=== PATIENT | male | born 1985 | race Two or more races ===

== ENCOUNTER 2017-05-22 12:55 | Emergency (ER) | payer SELFPAY ==
--- NOTE | 2017-05-22 14:00 | ER Document Report ---
HPI - HPI Pain Level: 4 Notes: Patient is a 31-year-old male with no significant past medical history presents the ED complaining of bites to his hands and the back of his head at 3:00 this morning when he was sleeping. Patient states that he has had intense itching since then without any purulent discharge or abscess. Patient states that he had this once before and it was bedbugs. He denies any drug allergies or IV drug use. Denies any headache, fever, neck pain, URI, sore throat, chest pain, palpitations, syncope, cough, shortness of breath, wheeze, dyspnea, abdominal pain, nausea/vomiting/diarrhea, urinary retention, dysuria, hematuria, numbness/ tingling, muscle paralysis/weakness. - ROS Notes: REVIEW OF SYSTEMS: CONSTITUTIONAL : Denies fever, chills, or sweats. Denies recent illness. EENT: Denies eye, ear, throat, or mouth pain or symptoms. Denies nasal or sinus congestion or discharge. Denies throat, tongue, or mouth swelling or difficulty swallowing. CARDIOVASCULAR: Denies chest pain. Denies palpitations or racing or irregular heart beat. RESPIRATORY: Denies cough, cold, or chest congestion. Denies shortness of breath, difficulty breathing, or wheezing. GASTROINTESTINAL: Denies abdominal pain or distention. Denies nausea, vomiting , or diarrhea. GENITOURINARY: Denies difficulty urinating, painful urination, burning, frequency, blood in urine, or discharge. MUSCULOSKELETAL: Denies back or neck pain or stiffness. Denies joint pain or swelling. SKIN: Denies rash, lesions or sores. NEUROLOGICAL: Denies confusion or altered mental status. Denies passing out or loss of consciousness. Denies dizziness or lightheadedness. Denies headache. Denies weakness or paralysis or loss of use of either side. Denies problems with gait or speech. Denies sensory loss, numbness, or tingling. Denies seizures. ALL OTHER SYSTEMS REVIEWED AND NEGATIVE. Dictation was performed using [employer] voice recognition software - CONSTITUTIONAL Constitutional: DENIES: Fever, Chills Past Medical History - Social History Smoking Status: Never Smoker Chew tobacco use (# tins/day): No Frequency of alcohol use: Occasional Drug Abuse: None Family History: Reviewed & Not Pertinent Patient has suicidal ideation: No Patient has homicidal ideation: No Renal/ Medical History: Denies: Hx Peritoneal Dialysis Vertical Provider Document - CONSTITUTIONAL Agree With Documented VS: Yes Notes: PHYSICAL EXAMINATION: GENERAL: Well-appearing, well-nourished and in no acute distress. A&O4 HEAD: Atraumatic, normocephalic. EYES: Pupils equal round and reactive to light, extraocular movements intact, sclera anicteric, conjunctiva are normal. ENT: Nares patent and without discharge. oropharynx clear without exudates. No tonsilar hypertrophy or erythema. Moist mucous membranes. NECK: Normal range of motion, supple without lymphadenopathy LUNGS: Breath sounds clear to auscultation bilaterally and equal. No wheezes rales or rhonchi. HEART: Regular rate and rhythm without murmurs, rubs, gallops. Musculoskeletal: FROM to passive/active. Strength 5+/5. Extremities: No cyanosis, clubbing, or edema b/l. Peripheral pulses 2+. Capillary refill less than 3 seconds. NEUROLOGICAL: Cranial nerves grossly intact. Normal speech, normal gait. Normal sensory, motor exams PSYCH: Normal mood, normal affect. SKIN: a few maculopapular histamine type reaction to the fingers/posterior hands and posterior scalp. No abscess, streaks, purulence. - INFECTION CONTROL TRAVEL OUTSIDE OF THE [place] IN LAST 30 DAYS: No - RESPIRATORY O2 Sat by Pulse Oximetry: 98 Course - Re-evaluation Re-evalutation: 05/22/17 14:08 Patient is an afebrile, well-hydrated, 31-year-old male who presents the ED with suspected bedbug bites. Vitals are stable. PE is otherwise unremarkable. Solu-Medrol 125 mg given IM today. I will send her home with a prescription for Vistaril as well as triamcinolone. Bedbug precautions reviewed. Recheck with your PCM in 3-5 days. Return to the ED with any worsening/concerning symptoms otherwise as reviewed discharge. Consider consult with dermatology if needed. Patient is in agreement. - Vital Signs Vital signs: Temp Pulse Resp BP Pulse Ox 98.1 F 86 16 123/70 98 05/22/17 13:06 05/22/17 13:06 05/22/17 13:06 05/22/17 13:06 05/22/17 13:06 Discharge - Discharge Clinical Impression: Bedbug bite Qualifiers: Encounter type: initial encounter Qualified Code(s): W57.XXXA - Bitten or stung by nonvenomous insect and other nonvenomous arthropods, initial encounter Condition: Stable Disposition: HOME, SELF-CARE Instructions: Insect Bites ([facility]) Additional Instructions: Keep the skin clean Bed bug treatment as reviewed Wash with soap and water Tylenol/ibuprofen if needed Triple antibiotic ointment daily for any break in the skin Take medication as directed Monitor for any worsening symptoms Recheck with your PCM in 3-5 days Consider consult with Dermatology for ongoing/worsening symptoms Return to the ED with any worsening symptoms and/or development of fever, headache, chest pain, palpitations, syncope, shortness of breath, trouble breathing, abdominal pain, n/v/d, abscess, purulent discharge, red streaks, worsening swelling, or other worsening symptoms that are concerning to you. Prescriptions: Hydroxyzine Pamoate [Vistaril 50 mg Capsule] 50 mg PO TID PRN #15 capsule PRN Reason: Triamcinolone Acetonide [Aristocort 0.5% Cream 15 gm] 1 applic TP BID #15 gm Referrals: KATIE NICHOLS DO [ACTIVE STAFF] - Follow up as needed
[2017-05-22] MEDS ORDERED: METHYLPREDNISOLONE INJ 125 MG/2 ML SDV IM ONE (14:03)
[2017-05-22 14:21] VITALS: BP 120/69
== END 2017-05-22 14:21 | disposition home or self-care (01) ==
LOC: ER 12:55
DX: S60.562A Insect bite (nonvenomous) of left hand, initial encounter (principal); S60.561A Insect bite (nonvenomous) of right hand, initial encounter; W57.XXXA Bitten or stung by nonvenomous insect and other nonvenomous arthropods, initial encounter
CPT/HCPCS: 99282; 96372; J2930

== ENCOUNTER 2017-06-04 06:53 | Emergency (ER) | payer SELFPAY ==
--- NOTE | 2017-06-04 07:54 | ER Document Report ---
ED General - General Chief Complaint: Urinary Problem Stated Complaint: BLOOD IN URINE,ANXIETY Time Seen by Provider: 06/04/17 07:35 TRAVEL OUTSIDE OF THE [place] IN LAST 30 DAYS: No - HPI Notes: Patient is a 31-year-old male who presents to the ED complaining of scant hematuria at the end of his urination this morning as well as right lower back pain that does not radiate that developed this morning as well. Patient states that he also had an anxiety attack this morning, which has since resolved. Pt does not take any daily PO medications. No SI/HI. Patient states that he did have a history of hematuria in the past due to over exercising, but states that he has not been exercising recently. Patient denies any other significant past medical history. Patient states that he has not been sexually active in over a month and is not worried about STDs as he gets tested every 6 months. He is eating and drinking without any difficulties. He is urinating normally otherwise and having normal bowel movements. Patient does admit to relapsing and doing cocaine 2 days ago. Patient states that he does not wish to have a psych consult at this time. No other concerns or complaints. Denies any headache, fever, neck pain, URI, sore throat, chest pain, palpitations, syncope , cough, shortness of breath, wheeze, dyspnea, abdominal pain, nausea/vomiting/ diarrhea, urinary retention, dysuria, loss of control of bowel or bladder, numbness/tingling, saddle anesthesia, muscle paralysis/weakness, or rash. No visual/auditory hallucinations. - Related Data Allergies/Adverse Reactions: No Known Allergies Allergy (Verified 06/04/17 07:07) Past Medical History - Social History Smoking Status: Unknown if Ever Smoked Family History: Reviewed & Not Pertinent Renal/ Medical History: Denies: Hx Peritoneal Dialysis Review of Systems - Review of Systems Notes: REVIEW OF SYSTEMS: CONSTITUTIONAL : Denies fever, chills, or sweats. Denies recent illness. EENT: Denies eye, ear, throat, or mouth pain or symptoms. Denies nasal or sinus congestion or discharge. Denies throat, tongue, or mouth swelling or difficulty swallowing. CARDIOVASCULAR: Denies chest pain. Denies palpitations or racing or irregular heart beat. Denies ankle edema. RESPIRATORY: Denies cough, cold, or chest congestion. Denies shortness of breath, difficulty breathing, or wheezing. GASTROINTESTINAL: Denies abdominal pain or distention. Denies nausea, vomiting , or diarrhea. Denies blood in vomitus, stools, or per rectum. Denies black, tarry stools. Denies constipation. GENITOURINARY: see hpi. MUSCULOSKELETAL: see hpi. Denies joint pain or swelling. SKIN: Denies rash, lesions or sores. NEUROLOGICAL: Denies confusion or altered mental status. Denies passing out or loss of consciousness. Denies dizziness or lightheadedness. Denies headache. Denies weakness or paralysis or loss of use of either side. Denies problems with gait or speech. Denies sensory loss, numbness, or tingling. Denies seizures. PSYCHIATRIC: see hpi. Denies depression, suicidal ideation, or homicidal ideation. ALL OTHER SYSTEMS REVIEWED AND NEGATIVE. Dictation was performed using [employer] voice recognition software Physical Exam - Vital signs Vitals: Temp Pulse Resp BP Pulse Ox 97.9 F 90 16 117/69 97 06/04/17 07:19 06/04/17 07:19 06/04/17 07:19 06/04/17 07:19 06/04/17 07:19 - Notes Notes: PHYSICAL EXAMINATION: GENERAL: Well-appearing, well-nourished and in no acute distress. A&Ox4 LUNGS: Breath sounds clear to auscultation bilaterally and equal. No wheezes rales or rhonchi. HEART: Regular rate and rhythm without murmurs, rubs, gallops. ABDOMEN: Soft, nontender, nondistended abdomen. No guarding, no rebound. No masses appreciated. Normal bowel sounds present. + mild rt CVA tenderness bilaterally. Musculoskeletal: FROM to passive/active. Strength 5+/5. No focal deficits. Back: FROM to passive/active. Strength 5+/5. SLR negative. No vertebral point tenderness or step-offs. No erythema or ecchymosis. Non-tender. Extremities: No cyanosis, clubbing, or edema b/l. Peripheral pulses 2+. Capillary refill less than 3 seconds. NEUROLOGICAL: Cranial nerves grossly intact. Normal speech, normal gait. Normal sensory, motor exams PSYCH: Normal mood, normal affect. SKIN: Warm, Dry, normal turgor, no rashes or lesions noted. Course - Re-evaluation Re-evalutation: 06/04/17 09:03 Patient is an afebrile, well-hydrated, 31-year-old male who presents to the ED status post resolved anxiety episode and subjective hematuria which is negative on urinalysis today. Vitals are stable. PE is otherwise unremarkable. Pt declined any SI/HI as well as any desire for a psych consult. See urinalysis results. Urine cultures pending along with Chlamydia/gonorrhea. Patient is adamant that he is negative for STDs and does not want the Zithromax or Rocephin today at this time and has agreed to return if positive. Low suspicion for any septic stone, acute /abdominal process at this time. Recommend conservative measures for symptoms with close monitoring. Recheck with your PCM in 3-5 days. Consider consult with urology/Psych for ongoing/ worsening symptoms. Return to the ED with any worsening/concerning symptoms otherwise as reviewed in discharge. Patient is in agreement. - Vital Signs Vital signs: Temp Pulse Resp BP Pulse Ox 97.9 F 90 16 117/69 97 06/04/17 07:19 06/04/17 07:19 06/04/17 07:19 06/04/17 07:19 06/04/17 07:19 - Laboratory Laboratory results interpreted by me: 06/04/17 08:20 Urine Protein 30 H Discharge - Discharge Clinical Impression: Anxiety Condition: Stable Disposition: HOME, SELF-CARE Instructions: Anxiety ([facility]) Additional Instructions: Push fluids (i.e. water, cranberry juice) Proper hygenic technique Keep the skin clean Tylenol/ibuprofen as needed F/u with your PCM in 3-5 days for a recheck Consider consult with a Urologist/Psych for ongoing/worsening symptoms. Return to the ED with any worsening symptoms and/or development of fever, headache, chest pain, palpitations, syncope, shortness of breath, trouble breathing, abdominal pain, n/v/d, blood in stool/urine, loss of control of bowel /bladder, urinary retention, suicidal/homicidal thoughts/ideations, or other worsening symptoms that are concerning to you. Referrals: [facility] [Provider Group] - Follow up as needed [facility] [Provider Group] - Follow up as needed
[2017-06-04 08:41] LABS: APPEARANCE,URINE SLIGHTLY-CLOUDY; BILIRUBIN,URINE NEGATIVE (NEGATIVE); COLOR,URINE YELLOW; GLUCOSE, URINE NEGATIVE (NEGATIVE); KETONES,URINE NEGATIVE (NEGATIVE); LEUKOCYTE ESTERASE,URINE NEGATIVE (NEGATIVE); NITRITE,URINE NEGATIVE (NEGATIVE); PROTEIN,URINE 30 mg/dL (NEGATIVE); URINE SPECIFIC GRAVITY 1.027; UROBILINOGEN,URINE NEGATIVE mg/dL (<2.0)
[2017-06-04 09:35] VITALS: BP 123/91
[2017-06-04 10:11] LABS: CHLAM PCR NOT DETECTED (NOT DETECT); GON PCR NOT DETECTED (NOT DETECT)
== END 2017-06-04 09:17 | disposition home or self-care (01) ==
LOC: ER 06:53
DX: F41.9 Anxiety disorder, unspecified (principal); M54.5 Low back pain
CPT/HCPCS: 81001; 87086; 87491; 87591; 99283

== ENCOUNTER 2017-07-12 21:54 | Emergency (ER) | payer SELFPAY ==
[2017-07-12 23:20] LABS: APPEARANCE,URINE SLIGHTLY-CLOUDY; BILIRUBIN,URINE NEGATIVE (NEGATIVE); COLOR,URINE YELLOW; GLUCOSE, URINE NEGATIVE (NEGATIVE); KETONES,URINE TRACE mg/dL (NEGATIVE); LEUKOCYTE ESTERASE,URINE NEGATIVE (NEGATIVE); NITRITE,URINE NEGATIVE (NEGATIVE); PROTEIN,URINE NEGATIVE (NEGATIVE); URINE SPECIFIC GRAVITY 1.014; UROBILINOGEN,URINE NEGATIVE mg/dL (<2.0)
[2017-07-13 00:02] LABS: ABSOLUTE LYMPHOCYTES (AUTO) 1.3 10^3/uL (0.5-4.7); ABSOLUTE MONOCYTES (AUTO) 0.4 10^3/uL (0.1-1.4); BASOPHILS % (AUTO) 0.4 % (0-2); EOSINOPHILS % (AUTO) 0.4 % (0-6); HEMATOCRIT 43.2 % (37.9-51.0); HEMOGLOBIN 15.1 g/dL (13.5-17.0); LYMPHOCYTES % (AUTO) 12.1 % (13-45); MEAN CORPUSCULAR HEMOGLOBIN 32.5 pg (27.0-33.4); MEAN CORPUSCULAR VOLUME 93 fl (80-97); MONOCYTES % (AUTO) 3.4 % (3-13); PLATELET COUNT 247 10^3/uL (150-450); RED BLOOD COUNT 4.66 10^6/uL (4.35-5.55); SEGMENTED NEUTROPHILS % (AUTO) 83.7 % (42-78); TOTAL CELLS COUNTED % (AUTO) 100 %; WHITE BLOOD COUNT 10.8 10^3/uL (4.0-10.5)
[2017-07-13] MEDS ORDERED: DIPH/PERTUSS(ACELL)/TETANUS VAC/PF 0.5 ML SYR (>=10YO) IM ONE (00:05)
[2017-07-13] MEDS ORDERED: LIDOCAINE 1%/EPINEPHRINE INJ 20 ML VIAL INJ ONE (00:05)
[2017-07-13 00:06] LABS: ALANINE AMINOTRANSFERASE 29 U/L (21-72); ALBUMIN 4.4 g/dL (3.5-5.0); ALCOHOL 192 mg/dL (NONE DETECTED); ALKALINE PHOSPHATASE 90 U/L (38-126); ANION GAP 15 (5-19); ASPARTATE AMINO TRANSFERASE 25 U/L (17-59); BILIRUBIN,DIRECT 0.2 mg/dL (0.0-0.4); BILIRUBIN,TOTAL 0.5 mg/dL (0.2-1.3); BLOOD UREA NITROGEN 11 mg/dL (7-20); CALCIUM 9.2 mg/dL (8.4-10.2); CARBON DIOXIDE 24 mmol/L (22-30); CHLORIDE 106 mmol/L (98-107); GLUCOSE 116 mg/dL (75-110); POTASSIUM 3.8 mmol/L (3.6-5.0); SODIUM 144.6 mmol/L (137-145); TOTAL PROTEIN 6.6 g/dL (6.3-8.2)
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
[2017-07-13 00:12] LABS: ACETAMINOPHEN < 10 ug/mL (10-30); SALICYLATE < 1.0 mg/dL (2.0-20.0)
[2017-07-13 01:14] LABS: URINE AMPHETAMINES SCREEN NEGATIVE; URINE BARBITURATES SCREEN NEGATIVE; URINE BENZODIAZEPINES SCREEN NEGATIVE; URINE COCAINE SCREEN UNCONFIRMED POSITIVE; URINE MARIJUANA (THC) SCREEN NEGATIVE; URINE METHADONE SCREEN NEGATIVE; URINE PHENCYCLIDINE SCREEN NEGATIVE
[2017-07-13] MEDS ORDERED: HALOPERIDOL 5 MG TABLET PO ONE (01:17)
[2017-07-13 03:02] VITALS: BP 138/76
--- NOTE | 2017-07-13 10:56 | EKG REPORT ---
SEVERITY:- BORDERLINE ECG - SINUS TACHYCARDIA ATRIAL PREMATURE COMPLEX BORDERLINE RIGHT AXIS DEVIATION : Confirmed by: Sheng Colunga 13-Jul-2017 10:55:58
== END 2017-07-13 03:02 | disposition home or self-care (01) ==
LOC: ER 21:54
DX: S71.112A Laceration without foreign body, left thigh, initial encounter (principal); X78.9XXA Intentional self-harm by unspecified sharp object, initial encounter; R00.0 Tachycardia, unspecified; F17.200 Nicotine dependence, unspecified, uncomplicated; Z23 Encounter for immunization
CPT/HCPCS: 93005; 99285; 90471; 36415; 80307 ×4; 85025; 80053; 81001; 90715; 93010; 12002; J3490

== ENCOUNTER 2017-07-14 10:41 | Emergency (ER) | payer SELFPAY ==
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
[2017-07-14 11:44] LABS: ABSOLUTE BASOPHILS # (AUTO) 0.1 10^3/uL (0.0-0.2); ABSOLUTE EOSINOPHILS # (AUTO) 0.1 10^3/uL (0.0-0.6); ABSOLUTE LYMPHOCYTES (AUTO) 0.8 10^3/uL (0.5-4.7); ABSOLUTE MONOCYTES (AUTO) 0.5 10^3/uL (0.1-1.4); ABSOLUTE NEUT (AUTO) 5.6 10^3/uL (1.7-8.2); BASOPHILS % (AUTO) 0.8 % (0-2); EOSINOPHILS % (AUTO) 1.1 % (0-6); HEMATOCRIT 46.4 % (37.9-51.0); HEMOGLOBIN 16.1 g/dL (13.5-17.0); MEAN CORPUSCULAR HEMOGLOBIN 32.2 pg (27.0-33.4); MEAN CORPUSCULAR HGB CONC 34.8 g/dL (32.0-36.0); MEAN CORPUSCULAR VOLUME 93 fl (80-97); MONOCYTES % (AUTO) 7.3 % (3-13); PLATELET COUNT 268 10^3/uL (150-450); RED BLOOD COUNT 5.01 10^6/uL (4.35-5.55); SEGMENTED NEUTROPHILS % (AUTO) 78.8 % (42-78); TOTAL CELLS COUNTED % (AUTO) 100 %; WHITE BLOOD COUNT 7.1 10^3/uL (4.0-10.5)
[2017-07-14 12:03] LABS: ALANINE AMINOTRANSFERASE 26 U/L (21-72); ALBUMIN 4.5 g/dL (3.5-5.0); ALKALINE PHOSPHATASE 94 U/L (38-126); ANION GAP 9 (5-19); ASPARTATE AMINO TRANSFERASE 20 U/L (17-59); BILIRUBIN,DIRECT 0.2 mg/dL (0.0-0.4); BILIRUBIN,TOTAL 1.6 mg/dL (0.2-1.3); BLOOD UREA NITROGEN 12 mg/dL (7-20); CALCIUM 10.1 mg/dL (8.4-10.2); CARBON DIOXIDE 29 mmol/L (22-30); CHLORIDE 101 mmol/L (98-107); GLUCOSE 96 mg/dL (75-110); POTASSIUM 4.5 mmol/L (3.6-5.0); TOTAL PROTEIN 7.5 g/dL (6.3-8.2)
[2017-07-14 12:04] LABS: ACETAMINOPHEN < 10 ug/mL (10-30); ALCOHOL < 10 mg/dL (NONE DETECTED); SALICYLATE < 1.0 mg/dL (2.0-20.0)
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
[2017-07-14] MEDS ORDERED: ACETAMINOPHEN 325 MG TABLET ONE (16:08)
[2017-07-14] MEDS: BENZTROPINE MESYLATE 1 MG TABLET PO SCH (17:16)
[2017-07-14] MEDS: OLANZAPINE 5 MG TABLET PO SCH (17:17)
[2017-07-14] MEDS: FLUOXETINE HCL 20 MG CAPSULE PO SCH (17:17)
--- NOTE | 2017-07-14 22:02 | EKG REPORT ---
SEVERITY:- NORMAL ECG - SINUS RHYTHM : Confirmed by: Sheng Colunga 14-Jul-2017 22:01:44
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
[2017-07-15] MEDS: OLANZAPINE 5 MG TABLET PO SCH ×2 (09:43→17:59)
[2017-07-15] MEDS: FLUOXETINE HCL 20 MG CAPSULE PO SCH (09:43)
[2017-07-15] MEDS: BENZTROPINE MESYLATE 1 MG TABLET PO SCH (09:44)
--- NOTE | 2017-07-15 09:58 | ER Document Report ---
Doctor's Note Notes: 07/15/17 09:57 Medical rounds: Chart reviewed and patient interviewed briefly. Vital signs are stable. Laboratory values are satisfactory. Patient verbalizes no somatic complaints. He is alert, oriented, and cooperative. He is medically stable, awaiting disposition.
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
[2017-07-15 17:37] LABS: APPEARANCE,URINE CLEAR; BILIRUBIN,URINE NEGATIVE (NEGATIVE); COLOR,URINE YELLOW; GLUCOSE, URINE NEGATIVE (NEGATIVE); KETONES,URINE NEGATIVE (NEGATIVE); LEUKOCYTE ESTERASE,URINE NEGATIVE (NEGATIVE); NITRITE,URINE NEGATIVE (NEGATIVE); PROTEIN,URINE NEGATIVE (NEGATIVE); URINE SPECIFIC GRAVITY 1.023
[2017-07-15 17:50] LABS: URINE AMPHETAMINES SCREEN NEGATIVE; URINE BARBITURATES SCREEN NEGATIVE; URINE BENZODIAZEPINES SCREEN NEGATIVE; URINE COCAINE SCREEN UNCONFIRMED POSITIVE; URINE MARIJUANA (THC) SCREEN NEGATIVE; URINE METHADONE SCREEN NEGATIVE; URINE PHENCYCLIDINE SCREEN NEGATIVE
[2017-07-15] MEDS ORDERED: LORAZEPAM INJ 2 MG/1 ML VIAL IM ONE (23:49)
[2017-07-16 06:08] VITALS: BP 125/68
[2017-07-16] MEDS: OLANZAPINE 5 MG TABLET PO SCH (09:22)
--- NOTE | 2017-07-16 09:56 | ER Document Report ---
Doctor's Note Notes: 07/16/17 09:56 As the rounding physician for our psychiatric patients, I have reviewed the chart, vitals, lab work. Patient has been examined and noted to be stable. I am awaiting mental health in put.
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
== END 2017-07-16 13:02 | disposition home or self-care (01) ==
LOC: ER 10:41
DX: R45.851 Suicidal ideations (principal); F17.210 Nicotine dependence, cigarettes, uncomplicated; F32.9 Major depressive disorder, single episode, unspecified
CPT/HCPCS: 93005; 99285; 36415; 80307 ×4; 85025; 80053; 81001; 93010; J2060

== ENCOUNTER 2017-07-20 12:41 | Emergency (ER) | payer SELFPAY ==
[2017-07-20 12:45] VITALS: BP 125/80
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
== END 2017-07-20 13:37 | disposition home or self-care (01) ==
LOC: ER 12:41
DX: Z48.02 Encounter for removal of sutures (principal)

== ENCOUNTER 2017-09-16 22:48 | Emergency (ER) | payer SELFPAY ==
--- NOTE | 2017-09-17 00:03 | EKG REPORT ---
SEVERITY:- OTHERWISE NORMAL ECG - SINUS RHYTHM ATRIAL PREMATURE COMPLEX : Confirmed by: Sheng Colunga 17-Sep-2017 00:02:29
--- NOTE | 2017-09-17 00:43 | ER Document Report ---
ED General - General Chief Complaint: Chest Pain Stated Complaint: CHEST PAIN Time Seen by Provider: 09/16/17 23:58 Mode of Arrival: Ambulatory Information source: Patient Notes: 31-year-old male history of anxiety panic attacks PTSD presents with complaints of panic attack. Patient notes he is having chest tightness sensation radiating down his left arm tingling sensations in his fingers on both sides feels his right arm is completely numb feels tingling in his lips palpitations shortness of breath and diarrhea TRAVEL OUTSIDE OF THE [place] IN LAST 30 DAYS: No - HPI Onset: Just prior to arrival Onset/Duration: Sudden Quality of pain: Achy Severity: Mild Pain Level: 1 Associated symptoms: Chest pain, Other Exacerbated by: Denies Relieved by: Denies Similar symptoms previously: Yes Recently seen / treated by doctor: Yes - Related Data Allergies/Adverse Reactions: No Known Allergies Allergy (Verified 09/16/17 23:09) Past Medical History - Social History Smoking Status: Never Smoker Cigarette use (# per day): No Chew tobacco use (# tins/day): No Smoking Education Provided: No Family History: Reviewed & Not Pertinent Neurological Medical History: Reports: Hx Seizures - age 13y/o Renal/ Medical History: Denies: Hx Peritoneal Dialysis Psychiatric Medical History: Reports: Hx Depression - PTSD, Panic and personality disorder Review of Systems - Review of Systems Notes: REVIEW OF SYSTEMS: CONSTITUTIONAL : Denies fever, chills, or sweats. Denies recent illness. EENT: Denies eye, ear, throat, or mouth pain or symptoms. Denies nasal or sinus congestion or discharge. Denies throat, tongue, or mouth swelling or difficulty swallowing. CARDIOVASCULAR: Admits to chest pain RESPIRATORY: Denies cough, cold, or chest congestion. Denies shortness of breath, difficulty breathing, or wheezing. GASTROINTESTINAL: Admits to diarrhea GENITOURINARY: Denies difficulty urinating, painful urination, burning, frequency, blood in urine, or discharge. MUSCULOSKELETAL: Denies back or neck pain or stiffness. Denies joint pain or swelling. SKIN: Denies rash, lesions or sores. HEMATOLOGIC : Denies easy bruising or bleeding. LYMPHATIC: Denies swollen, enlarged glands. NEUROLOGICAL: Denies confusion or altered mental status. Denies passing out or loss of consciousness. Denies dizziness or lightheadedness. Denies headache. Denies weakness or paralysis or loss of use of either side. Denies problems with gait or speech. Denies sensory loss, numbness, or tingling. Denies seizures. PSYCHIATRIC: severe anxiety ALL OTHER SYSTEMS REVIEWED AND NEGATIVE. Dictation was performed using [employer] voice recognition software PHYSICAL EXAMINATION: GENERAL: Well-appearing, well-nourished and in no acute distress. HEAD: Atraumatic, normocephalic. EYES: Pupils equal round and reactive to light, extraocular movements intact, sclera anicteric, conjunctiva are normal. ENT: Nares patent, oropharynx clear without exudates. Moist mucous membranes. NECK: Normal range of motion, supple without lymphadenopathy LUNGS: Breath sounds clear to auscultation bilaterally and equal. No wheezes rales or rhonchi. HEART: Regular rate and rhythm without murmurs ABDOMEN: Soft, nontender, nondistended abdomen. No guarding, no rebound. No masses appreciated. Musculoskeletal: Normal range of motion, no pitting or edema. No cyanosis. NEUROLOGICAL: Cranial nerves grossly intact. Normal speech, normal gait. Normal sensory, motor exams PSYCH: Tearful SKIN: Extensive tattoos Physical Exam - Vital signs Vitals: Temp Pulse Resp BP Pulse Ox 97.9 F 69 18 119/80 98 09/16/17 23:59 09/16/17 23:59 09/16/17 23:59 09/16/17 23:59 09/16/17 23:59 Course - Re-evaluation Re-evalutation: 09/17/17 00:40 Patient's presentation is most consistent with a panic attack, overall medically he is stable, he will be given Ativan here, patient otherwise is to be treated. He notes that his son 1 month ago and a close friend a few days ago Patient notes he is under financial stress and is unable to get custody of his other son as well Patient instructed to follow-up with his own psychiatrist will start him on Vistaril After performing a Medical Screening Examination, I estimate there is LOW risk for RUPTURED ESOPHAGUS, PNEUMOTHORAX, PULMONARY EMBOLISM, ACUTE CORONARY SYNDROME, OR THORACIC AORTIC DISSECTION, thus I consider the discharge disposition reasonable. I have reevaluated this patient multiple times and no significant life threatening changes are noted. The patient and I have discussed the diagnosis and risks, and we agree with discharging home with close follow-up. We also discussed returning to the Emergency Department immediately if new or worsening symptoms occur. We have discussed the symptoms which are most concerning (e.g., bloody sputum, worsening pain or shortness of breath) that necessitate immediate return. - Vital Signs Vital signs: Temp Pulse Resp BP Pulse Ox 97.9 F 69 18 119/80 98 09/16/17 23:59 09/16/17 23:59 09/16/17 23:59 09/16/17 23:59 09/16/17 23:59 - EKG Interpretation by Me EKG shows normal: Sinus rhythm, [place], Intervals, QRS Complexes Discharge - Discharge Clinical Impression: Panic attack as reaction to stress Condition: Stable Disposition: HOME, SELF-CARE Instructions: Chest Pain of Unclear Cause ([facility]) Additional Instructions: Follow up with your physician tomorrow for further care or return to the ED IMMEDIATELY if symptoms worsen or new concerns occur. If you cannot afford to follow up with your primary care physician a list of low cost clinics have been provided at the end of your discharge papers as well. Prescriptions: Hydroxyzine Pamoate [Vistaril 25 mg Capsule] 25 mg PO BID #30 capsule
[2017-09-17] MEDS: LORAZEPAM 0.5 MG TABLET PO ONE (00:55)
[2017-09-17 01:25] VITALS: BP 116/82
== END 2017-09-17 01:40 | disposition home or self-care (01) ==
LOC: ER 22:48
DX: F43.0 Acute stress reaction (principal); R07.89 Other chest pain; R20.2 Paresthesia of skin; R20.0 Anesthesia of skin; R00.2 Palpitations; R06.02 Shortness of breath; R19.7 Diarrhea, unspecified
CPT/HCPCS: 93005; 93010; 99285

== ENCOUNTER 2017-10-03 13:19 | Emergency (ER) | payer SELFPAY ==
[2017-10-03 13:27] VITALS: BP 135/89
[2017-10-03] MEDS ORDERED: LIDOCAINE 1% INJ (10 MG/ML) 10 ML MDV INJ ONE (13:54)
[2017-10-03] MEDS ORDERED: BUPIVACAINE HCL 0.5 % INJ/PF 30 ML SDV INJ ONE (13:54)
[2017-10-03] MEDS ORDERED: PENICILLIN V POTASSIUM 500 MG TABLET PO ONE (13:54)
--- NOTE | 2017-10-03 14:09 | ER Document Report ---
ED Oral Problem - General Chief Complaint: Toothache Stated Complaint: TOOTH PAIN Time Seen by Provider: 10/03/17 13:30 Mode of Arrival: Ambulatory Information source: Patient TRAVEL OUTSIDE OF THE [place] IN LAST 30 DAYS: No - HPI Patient complains to provider of: Toothache Quality of pain: Achy Notes: Patient is here with complaints of left upper dental pain. He states been present for the last few days. He had a filling the tooth fell out and denies having pain. He denies any fever. He denies any facial swelling. No difficulty breathing or swallowing. No nausea, vomiting, diarrhea. No rash. No injury. Pain is worse when he tries to eat, nothing makes it better. No other complaints at this time. - Related Data Allergies/Adverse Reactions: No Known Allergies Allergy (Verified 09/16/17 23:09) Past Medical History - Social History Smoking Status: Current Every Day Smoker Frequency of alcohol use: 1 beer a day Drug Abuse: None Family History: Reviewed & Not Pertinent Patient has suicidal ideation: No Patient has homicidal ideation: No Neurological Medical History: Reports: Hx Seizures - age 13y/o Renal/ Medical History: Denies: Hx Peritoneal Dialysis Psychiatric Medical History: Reports: Hx Depression - PTSD, Panic and personality disorder Review of Systems - Review of Systems -: Yes All other systems reviewed and negative Physical Exam - Vital signs Vitals: Temp Pulse Resp BP Pulse Ox 97.3 F 83 14 135/89 H 98 10/03/17 13:25 10/03/17 13:25 10/03/17 13:25 10/03/17 13:25 10/03/17 13:25 - Notes Notes: GENERAL: alert, cooperative, nontoxic, no distress. HEAD: normocephalic, atraumatic EYES: conjunctiva pink without discharge, no external redness or swelling. EARS: no external swelling, no external redness NOSE: atraumatic, no external swelling MOUTH/THROAT: mucous membranes moist and pink. Half of the filling is missing from his left upper first molar. There is no gum swelling. No abscess. No trismus or drooling. Airway is patent. No stridor. NECK: soft, supple, full range of motion, no meningismus. CHEST: no distress, lungs clear and equal throughout. No wheezing, rales, rhonchi. CARDIAC: regular rate and rhythm, no murmur, normal capillary refill, normal pulses. BACK: full range of motion, no CVA tenderness. EXTREMITIES: full range of motion of all extremities. No redness, no swelling. NEURO: alert and oriented 3, no focal deficits, full range of motion of all extremities. PYSCH: appropriate mood, affect. Patient is cooperative. SKIN: pink, warm, dry, no rash. Course - Re-evaluation Re-evalutation: 10/03/17 14:07 Patient is nontoxic appearing with stable vitals. He is here with complaints of left upper dental pain. He had a filling that fell out and is now having pain. There is no sign of abscess or significant infection. No distress. Airways patent. No facial swelling. Patient will be given a dose of Pen-Vee K in emergency department will be discharged home with a prescription for Pen-Vee K and Voltaren. A dental block was performed using lidocaine and Marcaine. Patient was instructed to follow-up with his dentist at the next available appointment, sooner for worsening pain, fever, swelling, difficulty breathing or swelling, or for any further concerns. The patient is noted to have elevated blood pressure during today's emergency department visit. The patient was informed of this finding. The patient was instructed that this may be related to pre-hypertension and requires further evaluation with a primary care provider. The patient has no hypertensive symptoms at this time. The patient's emergency department workup and current diagnosis were explained to the patient and or family. Follow-up instructions were provided. Medications if prescribed were discussed. Instructions for when to return to the emergency department including specific worrisome symptoms were discussed with the patient and/or family. - Vital Signs Vital signs: Temp Pulse Resp BP Pulse Ox 97.3 F 83 14 135/89 H 98 10/03/17 13:25 10/03/17 13:25 10/03/17 13:25 10/03/17 13:25 10/03/17 13:25 Discharge - Discharge Clinical Impression: Pain, dental Condition: Stable Disposition: HOME, SELF-CARE Instructions: [facility], Penicillin V K ([facility]), Toothache ([facility]), Dentist Additional Instructions: Take medications as prescribed. Follow-up with your dentist at the next available appointment. Follow-up sooner for worsening pain, fever, numbness, tingling, weakness, difficulty breathing or swallowing, or for any further concerns. Your blood pressure was elevated during today's visit. Have this rechecked with your doctor. Prescriptions: Diclofenac Sodium [Voltaren 50 Mg Tablet.] 50 mg PO BID #20 tablet. Penicillin V Potassium [Penicillin Vk 500 mg Tablet] 500 mg PO BID #20 tablet Forms: Elevated Blood Pressure, Smoking Cessation Education Referrals: [facility] [Provider Group] - Follow up as needed [facility] [Provider Group] - Follow up as needed
== END 2017-10-03 14:14 | disposition home or self-care (01) ==
LOC: ER 13:19
DX: K08.89 Other specified disorders of teeth and supporting structures (principal); R03.0 Elevated blood-pressure reading, without diagnosis of hypertension; F17.200 Nicotine dependence, unspecified, uncomplicated
CPT/HCPCS: 99282; J3490

== ENCOUNTER 2017-12-03 22:24 | Emergency (ER) | payer SELFPAY ==
[2017-12-03] MEDS ORDERED: ASPIRIN 81 MG TABLET, CHEWABLE PO ONE (23:02)
[2017-12-03 23:08] LABS: ABSOLUTE BASOPHILS # (AUTO) 0.1 10^3/uL (0.0-0.2); ABSOLUTE EOSINOPHILS # (AUTO) 0.1 10^3/uL (0.0-0.6); ABSOLUTE LYMPHOCYTES (AUTO) 4.2 10^3/uL (0.5-4.7); ABSOLUTE MONOCYTES (AUTO) 0.7 10^3/uL (0.1-1.4); ABSOLUTE NEUT (AUTO) 2.8 10^3/uL (1.7-8.2); BASOPHILS % (AUTO) 1.1 % (0-2); EOSINOPHILS % (AUTO) 1.3 % (0-6); HEMATOCRIT 43.2 % (37.9-51.0); HEMOGLOBIN 15.5 g/dL (13.5-17.0); LYMPHOCYTES % (AUTO) 53.3 % (13-45); MEAN CORPUSCULAR HEMOGLOBIN 32.5 pg (27.0-33.4); MEAN CORPUSCULAR HGB CONC 35.8 g/dL (32.0-36.0); MEAN CORPUSCULAR VOLUME 91 fl (80-97); MONOCYTES % (AUTO) 9.3 % (3-13); PLATELET COUNT 215 10^3/uL (150-450); RED BLOOD COUNT 4.76 10^6/uL (4.35-5.55); RED CELL DISTRIBUTION WIDTH 12.2 % (11.5-14.0); TOTAL CELLS COUNTED % (AUTO) 100 %; WHITE BLOOD COUNT 7.9 10^3/uL (4.0-10.5)
[2017-12-03 23:26] LABS: ALANINE AMINOTRANSFERASE 54 U/L (21-72); ALKALINE PHOSPHATASE 92 U/L (38-126); ANION GAP 10 (5-19); ASPARTATE AMINO TRANSFERASE 43 U/L (17-59); BILIRUBIN,DIRECT 0.3 mg/dL (0.0-0.4); BILIRUBIN,TOTAL 0.9 mg/dL (0.2-1.3); BLOOD UREA NITROGEN 13 mg/dL (7-20); CALCIUM 8.5 mg/dL (8.4-10.2); CARBON DIOXIDE 25 mmol/L (22-30); CHLORIDE 103 mmol/L (98-107); CREATINE KINASE 72 U/L (55-170); GLUCOSE 101 mg/dL (75-110); POTASSIUM 4.4 mmol/L (3.6-5.0); SODIUM 138.2 mmol/L (137-145); TOTAL PROTEIN 7.1 g/dL (6.3-8.2)
--- NOTE | 2017-12-03 23:26 | RADIOLOGY REPORT (SQ) ---
EXAM DESCRIPTION: XR CHEST 1 VIEW COMPLETED DATE/TME: 12/03/2017 23:02 CLINICAL HISTORY: CP COMPARISON: 10/13/2015 FINDINGS: Single frontal view of the chest. The cardiomediastinal silhouette has normal size and contour. No consolidation, pneumothorax, or pleural effusion. No displaced rib fractures identified. Upper abdominal soft tissues are unremarkable. IMPRESSION: 1. No acute pulmonary process identified.
[2017-12-03 23:37] LABS: CREATINE KINASE MB 0.24 ng/mL (<4.55)
[2017-12-03 23:40] LABS: TROPONIN I < 0.012 ng/mL
[2017-12-04] MEDS ORDERED: ALBUTEROL SULFATE HFA (90 MCG/PUFF) 200 PUFF/8.5 GM MDI IH ONE (02:20)
[2017-12-04] MEDS ORDERED: LIDOCAINE 2% INJ-PF (20 MG/ML) 10 ML AMPUL NEB ONE (02:20)
[2017-12-04] MEDS ORDERED: ACETAMINOPHEN 325 MG TABLET PO ONE (02:21)
[2017-12-04] MEDS ORDERED: BENZONATATE 100 MG CAPSULE PO ONE (02:21)
--- NOTE | 2017-12-04 02:30 | ER Document Report ---
ED General - General Chief Complaint: Chest Pain Stated Complaint: CHEST PAIN Time Seen by Provider: 12/04/17 00:55 Notes: Patient is a 31-year-old male without past medical history presents with 3 days of cough, body aches, cough to 2 small clots in the past 24 hours. He states that he has a diffuse, stabbing, stinging pain to his chest when he coughs. Symptoms have been unchanged since onset. He has not tried anything to improve his symptoms. Nothing worsens his symptoms. He does not smoke. No history of asthma or COPD. He does not have a primary care doctor. Multiple sick contacts. He denies any shortness of breath, vomiting, recorded fever, syncope , headache or neck pain. TRAVEL OUTSIDE OF THE [place] IN LAST 30 DAYS: No - Related Data Allergies/Adverse Reactions: No Known Allergies Allergy (Verified 09/16/17 23:09) Past Medical History - General Information source: Patient - Social History Smoking Status: Former Smoker Chew tobacco use (# tins/day): No Frequency of alcohol use: None Drug Abuse: None Lives with: Alone Family History: Reviewed & Not Pertinent Patient has suicidal ideation: No Patient has homicidal ideation: No Neurological Medical History: Reports: Hx Seizures - age 13y/o Renal/ Medical History: Denies: Hx Peritoneal Dialysis Psychiatric Medical History: Reports: Hx Depression - PTSD, Panic and personality disorder Review of Systems - Review of Systems Notes: Constitutional: Negative for fever. HENT: Negative for sore throat. Eyes: Negative for visual changes. Cardiovascular: Positive for chest pain. Respiratory: Positive for chest pain Gastrointestinal: Negative for abdominal pain, vomiting or diarrhea. Genitourinary: Negative for dysuria. Musculoskeletal: Negative for back pain. Skin: Negative for rash. Neurological: Negative for headaches, weakness or numbness. 10 point ROS negative except as marked above and in HPI. Physical Exam - Vital signs Vitals: Temp Pulse Resp BP Pulse Ox 99.2 F 94 18 126/54 H 99 12/03/17 23:24 12/03/17 23:24 12/03/17 23:24 12/03/17 23:24 12/03/17 23:24 Interpretation: Normal Notes: PHYSICAL EXAMINATION: GENERAL: Well-appearing, well-nourished and in no acute distress. HEAD: Atraumatic, normocephalic. EYES: Pupils equal round and reactive to light, extraocular movements intact, sclera anicteric, conjunctiva are normal. ENT: nares patent, oropharynx clear without exudates. Moist mucous membranes. NECK: Normal range of motion, supple without lymphadenopathy LUNGS: Breath sounds clear to auscultation bilaterally and equal. No wheezes rales or rhonchi. HEART: Regular rate and rhythm without murmurs ABDOMEN: Soft, nontender, normoactive bowel sounds. No guarding, no rebound. No masses appreciated. EXTREMITIES: Normal range of motion, no pitting or edema. No cyanosis. NEUROLOGICAL: No focal neurological deficits. Moves all extremities spontaneously and on command. PSYCH: Normal mood, normal affect. SKIN: Warm, Dry, normal turgor, no rashes or lesions noted. Course - Re-evaluation Re-evalutation: 12/04/17 02:25 Patient presents with a clinical history and exam most consistent with an acute viral bronchitis. Patient is overall well in appearance without tachypnea, hypoxemia, tachycardia, or difficulty with ambulation. Breath sounds are clear bilaterally. No fever. Patient does have additional signs of upper respiratory infection including nasal congestion, sore throat, and sinus pressure. Labs and imaging unremarkable. In the context of him having such a vigorous cough for the past 3 days. Will treat with bronchodilators, single dose of dexamethasone, and Tessalon Perles. At this time will discharge with return precautions and follow-up recommendations. Verbal discharge instructions given a the bedside and opportunity for questions given. Medication warnings reviewed. Patient is in agreement with this plan and has verbalized understanding of return precautions and the need for primary care follow-up in the next 24-72 hours. - Vital Signs Vital signs: Temp Pulse Resp BP Pulse Ox 99.0 F 80 16 126/54 H 99 12/04/17 00:22 12/04/17 01:08 12/04/17 01:08 12/03/17 23:24 12/03/17 23:24 - Laboratory Result Diagrams: 12/03/17 22:45 12/03/17 22:45 Laboratory results interpreted by me: 12/03/17 22:45 Seg Neutrophils % 35.0 L Lymphocytes % 53.3 H - Diagnostic Test Radiology reviewed: Image reviewed, Reports reviewed Radiology results interpreted by me: 12/04/17 02:25 Chest x-ray: No acute infiltrate or pneumothorax - EKG Interpretation by Me Additional EKG results interpreted by me: 12/04/17 02:26 Sinus rhythm. Rate 96. No ST elevation or depressions. QTC 410. Discharge - Discharge Clinical Impression: Chest wall pain, Cough, Body aches Acute bronchitis Qualifiers: Bronchitis organism: unspecified organism Qualified Code(s): J20.9 - Acute bronchitis, unspecified Condition: Good Disposition: HOME, SELF-CARE Additional Instructions: You were seen for symptoms most consistent with bronchitis. This can take up to 12 weeks to fully resolve. This is generally due to a viral infection. Please follow-up with your primary doctor in the next 2-3 days. Return if you develop worsening cough, vomiting, fever >100.4, pass out, begin coughing blood, or have any other symptoms that are concerning to you. Please use the medications prescribed today as directed. For your pain: Take ibuprofen 600 mg and acetaminophen 1000 mg every 6 hours together as needed for pain. Prescriptions: Benzonatate [Tessalon Perles 100 mg Capsule] 100 mg PO Q8HP PRN #40 capsule PRN Reason:
[2017-12-04] MEDS ORDERED: DEXAMETHASONE 4 MG TABLET PO ONE (02:31)
[2017-12-04 03:25] VITALS: BP 132/78
--- NOTE | 2017-12-04 09:58 | EKG REPORT ---
SEVERITY:- NORMAL ECG - SINUS RHYTHM : Confirmed by: Lupe Orozco MD 04-Dec-2017 09:57:39
== END 2017-12-04 03:24 | disposition home or self-care (01) ==
LOC: ER 22:24
DX: J20.9 Acute bronchitis, unspecified (principal); R07.89 Other chest pain; R05 Cough; M79.1 Myalgia; Z87.891 Personal history of nicotine dependence
CPT/HCPCS: 93005; 99285; 36415; 82553; 82550; 85025; 80053; 84484; 71045; 93010; J3490 ×2

== ENCOUNTER 2018-04-17 22:03 | Emergency (ER) | payer SELFPAY ==
[2018-04-17] MEDS ORDERED: LORAZEPAM INJ 2 MG/1 ML VIAL IV ONE (22:16)
[2018-04-17] MEDS ORDERED: NORMAL SALINE 1000 ML 1,000 ML IV ONE (22:16)
--- NOTE | 2018-04-17 22:22 | ER Document Report ---
ED General - General TRAVEL OUTSIDE OF THE [place] IN LAST 30 DAYS: No <JI SCHMIDT - Last Filed: 04/18/18 06:27> <RAVEN BARNES - Last Filed: 04/18/18 15:24> - General Chief Complaint: Possible Overdose Stated Complaint: OVERDOSE Time Seen by Provider: 04/17/18 22:13 Notes: Patient is a 32-year-old male presents with complaint of injecting without was meth. He said that this is a first-time is injected in a few years. He denies smoking or inhaling anything. He said he had relapse. He denies doing any other drugs. He did have one beer tonight. He says he did this privately and no one else use of drugs. He says he immediately felt burning throughout his lungs. He does have a history of panic attacks. His fingers are all curled up in his hands. He says he feels very anxious and unwell. He denies abdominal pain. He has some nausea. He said he spit up some phlegm. No other complaints at this time. He has no medical allergies and is otherwise healthy except for history of anxiety. (JI SCHMIDT) - Related Data Allergies/Adverse Reactions: No Known Allergies Allergy (Verified 04/18/18 09:33) Past Medical History - Social History Smoking Status: Never Smoker Frequency of alcohol use: Occasional Drug Abuse: Methamphetamine Family History: Reviewed & Not Pertinent Neurological Medical History: Reports: Hx Seizures - age 13y/o Renal/ Medical History: Denies: Hx Peritoneal Dialysis Psychiatric Medical History: Reports: Hx Depression - PTSD, Panic and personality disorder <JI SCHMIDT - Last Filed: 04/18/18 06:27> Review of Systems <JI SCHMIDT - Last Filed: 04/18/18 06:27> <RAVEN BARNES - Last Filed: 04/18/18 15:24> - Review of Systems Notes: My Normal Review Basic REVIEW OF SYSTEMS: CONSTITUTIONAL : Denies fever, chills, or sweats. Denies recent illness. EENT: Denies eye, ear, throat, or mouth pain or symptoms. Denies nasal or sinus congestion. CARDIOVASCULAR: Burning sensation in chest. RESPIRATORY: Tachypnea. GASTROINTESTINAL: Denies abdominal pain. Some nausea MUSCULOSKELETAL: Denies neck or back pain or joint pain or swelling. SKIN: Denies rash or skin lesions. NEUROLOGICAL: Denies altered mental status or loss of consciousness. Denies headache. Denies weakness or paralysis or loss of use of either side. Denies problems with gait or speech. Denies sensory or motor loss. ALL OTHER SYSTEMS REVIEWED AND NEGATIVE. (JI SCHMIDT) Physical Exam <JI SCHMIDT - Last Filed: 04/18/18 06:27> <RAVEN BARNES - Last Filed: 04/18/18 15:24> - Vital signs Vitals: Resp BP Pulse Ox 10 L 124/81 100 04/17/18 22:13 04/17/18 22:13 04/17/18 22:13 - Notes Notes: General Appearance: Well nourished, alert, cooperative,very anxious appearing Vitals: reviewed, See vital signs table. Head: no swelling or tenderness to the head Eyes: PERRL, EOMI, Conjuctiva clear Mouth: No decreasd moisture Neck: Supple, no neck tenderness, No thyromegaly Lungs: No wheezing, No rales, No rhonci, No accessory muscle use, good air exchange bilaterally. Heart: Tachycardic rate, Regular rythm, No murmur, no rub Abdomen: Normal BS, soft, No rigidity, No abdominal tenderness, Extremities: good pulses in all extremities, carpal pedal spasm, no edema. Skin: warm, dry, appropriate color, no rash Neuro: speech clear, oriented x 3, normal affect, responds appropriately to questions. (JI SCHMIDT) Course - Laboratory Result Diagrams: 04/17/18 22:14 04/17/18 22:14 <JI SCHMIDT - Last Filed: 04/18/18 06:27> - Laboratory Result Diagrams: 04/18/18 10:16 04/18/18 10:16 <RAVEN BARNES - Last Filed: 04/18/18 15:24> - Re-evaluation Re-evalutation: 04/17/18 22:35 After Ativan patient's heart rate is normalized and he looks and feels much improved. 04/17/18 23:56 Patient started to have some nausea and vomiting. We have given some Phenergan. He started to calm down again. Heart rate increased over 100 when he started get nauseous. Heart rate is starting to trend back down to the upper 90s. 04/18/18 02:13 Patient's nausea completely resolved with Phenergan. He continues to rest comfortably. His heart rate is 84 currently. He looks well. He is sleeping and will continue to let him sleep and reassess him again in a little bit. 04/18/18 06:25 Was able to get the patient to stand up out of bed but is obviously very sore which is understandable being that the patient was having muscle spasms in very agitated when he first arrived. He still somewhat likely related to the Ativan and Phenergan he received. I will give him the other liter of IV fluids. Once patient is no longer somnolent and able to stand and walk without difficulty he will be discharged home. Patient has no further concerns at this time. Dictation of this chart was performed using voice recognition software; therefore, there may be some unintended grammatical errors. (JI SCHMIDT) - Vital Signs Vital signs: Temp Pulse Resp BP Pulse Ox 16 108/67 100 04/18/18 13:01 04/18/18 13:01 04/18/18 10:27 - Laboratory Laboratory results interpreted by me: 04/17/18 04/17/18 04/17/18 22:14 22:14 22:14 WBC 14.6 H Seg Neutrophils % 84.7 H Lymphocytes % 7.0 L Monocytes % Absolute Neutrophils 12.3 H Chloride Carbon Dioxide 20 L BUN 31 H Creatinine 1.54 H Est GFR (Non-Af Amer) 52 L Glucose Magnesium Total Bilirubin 1.4 H Creatine Kinase 1204 H Total Protein Urine Ketones Urine Ascorbic Acid Salicylates < 1.0 L Acetaminophen < 10 L 04/18/18 04/18/18 04/18/18 08:40 10:16 10:16 WBC Seg Neutrophils % Lymphocytes % Monocytes % 13.6 H Absolute Neutrophils Chloride 108 H Carbon Dioxide BUN Creatinine 1.41 H Est GFR (Non-Af Amer) 58 L Glucose 56 L Magnesium 2.4 H Total Bilirubin 2.1 H Creatine Kinase 1045 H Total Protein 6.2 L Urine Ketones TRACE H Urine Ascorbic Acid 20 H Salicylates Acetaminophen - EKG Interpretation by Me Additional EKG results interpreted by me: 04/17/18 22:21 EKG is reviewed and interpreted by me. EKG shows sinus tachycardia with a rate of [address] segment elevation or depression. No ischemic T wave inversions. DC interval, QRS duration, QT intervals are within normal range. No old EKG available for comparison. (JI SCHMIDT) Discharge <JI SCHMIDT - Last Filed: 04/18/18 06:27> <RAVEN BARNES - Last Filed: 04/18/18 15:24> - Discharge Clinical Impression: Substance abuse, Acute renal insufficiency, Intravenous drug abuse, Methamphetamine abuse, Dental caries Rhabdomyolysis Qualifiers: Rhabdomyolysis type: traumatic Encounter type: initial encounter Qualified Code (s): T79.6XXA - Traumatic ischemia of muscle, initial encounter Chronic sinusitis Qualifiers: Sinusitis location: maxillary Qualified Code(s): J32.0 - Chronic maxillary sinusitis Condition: Good Disposition: HOME, SELF-CARE Additional Instructions: Your blood work did not show any abnormalities except for evidence of a slight kidney injury. This usually resolves in otherwise young health people; however, we recommend you have your kidney function rechecked in 1 week by a primary care physician. Please avoid all drugs. Continued use of drugs will likely lead to . Please return to the ER immediately if you develop severe chest pain, vomiting, severe depression, thoughts of suicide, or if you feel unwell. You should drink plenty of fluids over the next few days to improve your kidney function. You may take Tylenol for pain. You are advised against taking nonsteroidal anti-inflammatory drugs such as Motrin and Aleve, as these can impair your kidney function. Be sure to follow-up with a primary care provider at the beginning of the week to recheck your kidney function. Follow-up with a dentist to start treating your multiple decayed teeth. Take the antibiotics as prescribed for your dental pain and sinus disease. RETURN TO THE EMERGENCY ROOM IF ANY NEW OR WORSENING SYMPTOMS. Prescriptions: Amoxicillin 1 tab PO TID #30 tab
[2018-04-17 22:26] LABS: ABSOLUTE BASOPHILS # (AUTO) 0.1 10^3/uL (0.0-0.2); ABSOLUTE EOSINOPHILS # (AUTO) 0.1 10^3/uL (0.0-0.6); ABSOLUTE NEUT (AUTO) 12.3 10^3/uL (1.7-8.2); BASOPHILS % (AUTO) 0.4 % (0-2); EOSINOPHILS % (AUTO) 0.8 % (0-6); HEMATOCRIT 44.8 % (37.9-51.0); HEMOGLOBIN 16.1 g/dL (13.5-17.0); MEAN CORPUSCULAR HEMOGLOBIN 32.4 pg (27.0-33.4); MEAN CORPUSCULAR HGB CONC 35.8 g/dL (32.0-36.0); MEAN CORPUSCULAR VOLUME 90 fl (80-97); MONOCYTES % (AUTO) 7.1 % (3-13); PLATELET COUNT 278 10^3/uL (150-450); RED BLOOD COUNT 4.96 10^6/uL (4.35-5.55); SEGMENTED NEUTROPHILS % (AUTO) 84.7 % (42-78); TOTAL CELLS COUNTED % (AUTO) 100 %; WHITE BLOOD COUNT 14.6 10^3/uL (4.0-10.5)
[2018-04-17 22:47] LABS: ACETAMINOPHEN < 10 ug/mL (10-30); ALANINE AMINOTRANSFERASE 42 U/L (21-72); ALBUMIN 4.9 g/dL (3.5-5.0); ALCOHOL < 10 mg/dL (NONE DETECTED); ALKALINE PHOSPHATASE 94 U/L (38-126); ANION GAP 17 (5-19); ASPARTATE AMINO TRANSFERASE 52 U/L (17-59); BILIRUBIN,DIRECT 0.1 mg/dL (0.0-0.4); BILIRUBIN,TOTAL 1.4 mg/dL (0.2-1.3); BLOOD UREA NITROGEN 31 mg/dL (7-20); CALCIUM 9.6 mg/dL (8.4-10.2); CARBON DIOXIDE 20 mmol/L (22-30); CHLORIDE 101 mmol/L (98-107); GLUCOSE 85 mg/dL (75-110); POTASSIUM 4.4 mmol/L (3.6-5.0); SALICYLATE < 1.0 mg/dL (2.0-20.0); SODIUM 137.7 mmol/L (137-145)
[2018-04-17] MEDS ORDERED: PROMETHAZINE HCL INJ 25 MG/1 ML VIAL ONE (23:53)
[2018-04-18] MEDS ORDERED: RINGERS SOLUTION,LACTATED 1,000 ML IV ONE (06:25)
[2018-04-18] MEDS ORDERED: DEXTROSE 5%-LACTATED RINGERS 1,000 ML IV ONE ×2 (08:22→10:05)
[2018-04-18 08:58] LABS: APPEARANCE,URINE SLIGHTLY-CLOUDY; BILIRUBIN,URINE NEGATIVE (NEGATIVE); COLOR,URINE YELLOW; GLUCOSE, URINE NEGATIVE (NEGATIVE); KETONES,URINE TRACE mg/dL (NEGATIVE); LEUKOCYTE ESTERASE,URINE NEGATIVE (NEGATIVE); NITRITE,URINE NEGATIVE (NEGATIVE); PROTEIN,URINE NEGATIVE (NEGATIVE); URINE SPECIFIC GRAVITY 1.016; UROBILINOGEN,URINE NEGATIVE mg/dL (<2.0)
[2018-04-18 09:11] LABS: URINE BARBITURATES SCREEN NEGATIVE; URINE BENZODIAZEPINES SCREEN NEGATIVE; URINE COCAINE SCREEN NEGATIVE; URINE MARIJUANA (THC) SCREEN NEGATIVE; URINE METHADONE SCREEN NEGATIVE; URINE PHENCYCLIDINE SCREEN NEGATIVE
--- NOTE | 2018-04-18 09:36 | EKG REPORT ---
SEVERITY:- OTHERWISE NORMAL ECG - SINUS TACHYCARDIA BORDERLINE RIGHT AXIS DEVIATION : Confirmed by: Lupe Orozco MD 18-Apr-2018 09:36:05
--- NOTE | 2018-04-18 10:21 | ER Document Report ---
Doctor's Note Notes: 04/18/18 10:21 Patient continues to be unsteady on his feet. Additional IV fluids and repeat lab work was ordered. The nurse just now informed me that the patient states he has been having pain in his left neck and jaw going to the ear for the past hour. An EKG will also be done. 04/18/18 11:48 Lab work drawn at 1016 this morning showed the patient's blood sugar had dropped to 56 despite having had a liter of D5 LR an hour and a half earlier. He had an additional liter of D5LR started after the 10 AM blood draw. His CK this morning was 1,045 so a CK was added to his lab work from last night and it showed that his CK was 1,204 at that time. His bilirubin has gone up from 1.4- 2.5 since last night while his creatinine has gone down from 1.54-1.41, and his BUN is gone down from 31-20 with his IV hydration. 04/18/18 13:17 Urine drug screen shows the methamphetamine reading is so high they cannot conclusively reported. This is common the seen in this lab when there is recent use of methamphetamine. That is consistent with the history of shooting up methamphetamine IV last night. 04/18/18 14:52 The patient is now finally able to ambulate without difficulty on his own. He is now completely alert and oriented. He is complaining about severe pain to his left face and is very difficult to tell if this is a new issue or not because he also complains about his gums. He is also complaining about pain in his lungs when he breathes and states that is new since yesterday. On auscultation he does have some rhonchi Which is consistent with his history of smoking and drug abuse and being semi- responsive for such a long time. Another review of the record, shows that imaging studies were not done last night. Will get a 2 view chest x-ray and CT scan of facial bones prior to discharging the patient. 04/18/18 15:19 Chest x-ray is unremarkable. CT scan of the facial bones shows circumferential mucosal thickening in the left maxillary sinus without obstruction. Multiple advanced dental caries. No acute findings.
[2018-04-18 10:31] LABS: ABSOLUTE EOSINOPHILS # (AUTO) 0.2 10^3/uL (0.0-0.6); ABSOLUTE MONOCYTES (AUTO) 0.7 10^3/uL (0.1-1.4); ABSOLUTE NEUT (AUTO) 3.4 10^3/uL (1.7-8.2); BASOPHILS % (AUTO) 0.5 % (0-2); EOSINOPHILS % (AUTO) 3.3 % (0-6); HEMATOCRIT 40.7 % (37.9-51.0); HEMOGLOBIN 14.1 g/dL (13.5-17.0); LYMPHOCYTES % (AUTO) 19.2 % (13-45); MEAN CORPUSCULAR HGB CONC 34.8 g/dL (32.0-36.0); MEAN CORPUSCULAR VOLUME 92 fl (80-97); MONOCYTES % (AUTO) 13.6 % (3-13); PLATELET COUNT 224 10^3/uL (150-450); RED BLOOD COUNT 4.42 10^6/uL (4.35-5.55); RED CELL DISTRIBUTION WIDTH 13.3 % (11.5-14.0); SEGMENTED NEUTROPHILS % (AUTO) 63.4 % (42-78); TOTAL CELLS COUNTED % (AUTO) 100 %; WHITE BLOOD COUNT 5.3 10^3/uL (4.0-10.5)
[2018-04-18 10:50] LABS: ALANINE AMINOTRANSFERASE 37 U/L (21-72); ALBUMIN 3.7 g/dL (3.5-5.0); ALKALINE PHOSPHATASE 70 U/L (38-126); ANION GAP 9 (5-19); ASPARTATE AMINO TRANSFERASE 41 U/L (17-59); BILIRUBIN,DIRECT 0.3 mg/dL (0.0-0.4); BILIRUBIN,TOTAL 2.1 mg/dL (0.2-1.3); BLOOD UREA NITROGEN 20 mg/dL (7-20); CALCIUM 8.6 mg/dL (8.4-10.2); CARBON DIOXIDE 25 mmol/L (22-30); CHLORIDE 108 mmol/L (98-107); CREATINE KINASE 1045 U/L (55-170); GLUCOSE 56 mg/dL (75-110); POTASSIUM 3.9 mmol/L (3.6-5.0); TOTAL PROTEIN 6.2 g/dL (6.3-8.2)
[2018-04-18 11:36] LABS: CREATINE KINASE 1204 U/L (55-170)
--- NOTE | 2018-04-18 15:06 | RADIOLOGY REPORT (SQ) ---
EXAM DESCRIPTION: CT FACIAL AREA WITHOUT COMPLETED DATE/TIME: 04/18/2018 2:52 pm REASON FOR STUDY: L face pain,possible contusion after IV drug abuse COMPARISON: None. TECHNIQUE: Noncontrasted images through the facial bones and orbits windowed for bone and soft tissu e. Additional coronal and sagittal reconstructed images reviewed. All images stored on PACS. All CT scanners at this facility use dose modulation, iterative reconstruction, and/or weight based d osing when appropriate to reduce radiation dose to as low as reasonably achievable (ALARA). [facility]: Dose Right [facility]: CareDose [facility]: Dose Right [facility]: Teradose 4D [facility]: [employer] RADIATION DOSE: CT Rad equipment meets quality standard of care and radiation dose reduction techniq ues were employed. CTDIvol: 30.4 mGy. DLP: 638 mGy-cm. mGy. LIMITATIONS: None. FINDINGS: FACIAL BONES: No fracture or bone lesion. ORBITS: Intact. No fracture. Symmetric intact globes and retroorbital soft tissues. PARANASAL SINUSES: Circumferential mucous membrane thickening left maxillary sinus. Left maxillary o utlet patent SOFT TISSUES: No mass or edema. INFERIOR BRAIN: Limited view. No acute findings. OTHER: Multiple advanced dental caries IMPRESSION: NO ACUTE FINDINGS. TECHNICAL DOCUMENTATION: JOB ID: [id number] Quality ID # [id number]: Final reports with documentation of one or more dose reduction techniques (e.g., Au tomated exposure control, adjustment of the mA and/or kV according to patient size, use of iterative reconstruction technique) 2010 [employer]- All Rights Reserved Reading location - IP/workstation name: [email or web address]
--- NOTE | 2018-04-18 15:07 | RADIOLOGY REPORT (SQ) ---
EXAM DESCRIPTION: CHEST 2 VIEWS COMPLETED DATE/TIME: 04/18/2018 2:58 pm REASON FOR STUDY: Lung pain on breathing, recent IV drug abuse COMPARISON: AP chest 12/03/2017 EXAM PARAMETERS: NUMBER OF VIEWS: two views TECHNIQUE: Digital Frontal and Lateral radiographic views of the chest acquired. RADIATION DOSE: NA LIMITATIONS: none FINDINGS: LUNGS AND PLEURA: No opacities, masses or pneumothorax. No pleural effusion. MEDIASTINUM AND HILAR STRUCTURES: No masses or contour abnormalities. HEART AND VASCULAR STRUCTURES: Heart normal size. No evidence for failure. BONES: No acute findings. HARDWARE: None in the chest. OTHER: No other significant finding. IMPRESSION: NO ACUTE RADIOGRAPHIC FINDING IN THE CHEST. TECHNICAL DOCUMENTATION: JOB ID: [id number] [email or web address]- All Rights Reserved Reading location - IP/workstation name: [email or web address]
[2018-04-18] MEDS ORDERED: AMOXICILLIN TRIHYDRATE 500 MG CAPSULE PO ONE (15:24)
[2018-04-18 15:26] VITALS: BP 133/70
--- NOTE | 2018-04-18 19:53 | EKG REPORT ---
SEVERITY:- OTHERWISE NORMAL ECG - SINUS RHYTHM ATRIAL PREMATURE COMPLEX : Confirmed by: Lupe Orozco MD 18-Apr-2018 19:53:21
== END 2018-04-18 15:43 | disposition home or self-care (01) ==
LOC: ER 22:03
DX: F15.10 Other stimulant abuse, uncomplicated (principal); T79.6XXA Traumatic ischemia of muscle, initial encounter; X58.XXXA Exposure to other specified factors, initial encounter; N28.9 Disorder of kidney and ureter, unspecified; J32.0 Chronic maxillary sinusitis; K02.9 Dental caries, unspecified; F41.9 Anxiety disorder, unspecified; R09.89 Other specified symptoms and signs involving the circulatory and respiratory systems; R11.2 Nausea with vomiting, unspecified; R06.82 Tachypnea, not elsewhere classified; R00.0 Tachycardia, unspecified
CPT/HCPCS: 93005 ×2; 99285; 96361; 96374; 96375; 36415; 80307 ×4; 82550; 83735; 85025; 80053; 81001; 84484; 71046; 70486; 93010 ×2; J2060; J2550; J7030; J7120

== ENCOUNTER 2018-04-20 14:15 | Emergency (ER) | payer SELFPAY ==
[2018-04-20] MEDS ORDERED: LIDOCAINE 1% INJ-PF (10 MG/ML) 30 ML SDV INJ ONE (15:29)
[2018-04-20] MEDS ORDERED: PENICILLIN V POTASSIUM 500 MG TABLET PO ONE (15:29)
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
[2018-04-20] MEDS ORDERED: CLINDAMYCIN 900 MG/D5W RTU 900 MG/50 ML RTUPB IV ONE (15:46)
[2018-04-20] MEDS ORDERED: HYDROCODONE/ACETAMINOPHEN 5-325 MG TABLET PO ONE (15:50)
[2018-04-20 17:14] VITALS: BP 111/63
== END 2018-04-20 17:20 | disposition home or self-care (01) ==
LOC: ER 14:15
DX: K04.7 Periapical abscess without sinus (principal); M27.2 Inflammatory conditions of jaws; K08.89 Other specified disorders of teeth and supporting structures; F17.200 Nicotine dependence, unspecified, uncomplicated
CPT/HCPCS: 96365; 99283

== ENCOUNTER 2018-05-06 10:05 | Emergency (ER) | payer SELFPAY ==
[2018-05-06] MEDS ORDERED: NORMAL SALINE 1000 ML 1,000 ML IV ONE (10:29)
[2018-05-06 11:16] LABS: APPEARANCE,URINE CLEAR; BILIRUBIN,URINE NEGATIVE (NEGATIVE); COLOR,URINE YELLOW; GLUCOSE, URINE NEGATIVE (NEGATIVE); KETONES,URINE NEGATIVE (NEGATIVE); LEUKOCYTE ESTERASE,URINE NEGATIVE (NEGATIVE); NITRITE,URINE NEGATIVE (NEGATIVE); PROTEIN,URINE NEGATIVE (NEGATIVE); URINE SPECIFIC GRAVITY 1.014; UROBILINOGEN,URINE NEGATIVE mg/dL (<2.0)
[2018-05-06 12:08] LABS: ANION GAP 9 (5-19); BLOOD UREA NITROGEN 9 mg/dL (7-20); CALCIUM 8.3 mg/dL (8.4-10.2); CARBON DIOXIDE 22 mmol/L (22-30); CHLORIDE 111 mmol/L (98-107); GLUCOSE 78 mg/dL (75-110); POTASSIUM 3.7 mmol/L (3.6-5.0); SODIUM 142.4 mmol/L (137-145)
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
[2018-05-06 12:46] VITALS: BP 118/59
== END 2018-05-06 12:45 | disposition home or self-care (01) ==
LOC: ER 10:05
DX: Z71.1 Person with feared health complaint in whom no diagnosis is made (principal); M54.5 Low back pain; M54.9 Dorsalgia, unspecified; Z87.891 Personal history of nicotine dependence
CPT/HCPCS: 99283; 96360; 36415; 80048; 81001; J7030

== ENCOUNTER 2018-06-03 14:33 | Emergency (ER) | payer SELFPAY ==
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
[2018-06-03 15:31] LABS: APPEARANCE,URINE CLEAR; BILIRUBIN,URINE NEGATIVE (NEGATIVE); COLOR,URINE STRAW; GLUCOSE, URINE NEGATIVE (NEGATIVE); KETONES,URINE NEGATIVE (NEGATIVE); LEUKOCYTE ESTERASE,URINE NEGATIVE (NEGATIVE); NITRITE,URINE NEGATIVE (NEGATIVE); PROTEIN,URINE NEGATIVE (NEGATIVE); URINE SPECIFIC GRAVITY 1.005; UROBILINOGEN,URINE NEGATIVE mg/dL (<2.0)
[2018-06-03 15:33] LABS: ABSOLUTE BASOPHILS # (AUTO) 0.1 10^3/uL (0.0-0.2); ABSOLUTE EOSINOPHILS # (AUTO) 0.2 10^3/uL (0.0-0.6); ABSOLUTE LYMPHOCYTES (AUTO) 1.6 10^3/uL (0.5-4.7); ABSOLUTE MONOCYTES (AUTO) 0.5 10^3/uL (0.1-1.4); ABSOLUTE NEUT (AUTO) 3.5 10^3/uL (1.7-8.2); BASOPHILS % (AUTO) 1.3 % (0-2); EOSINOPHILS % (AUTO) 3.9 % (0-6); HEMATOCRIT 44.6 % (37.9-51.0); HEMOGLOBIN 15.6 g/dL (13.5-17.0); LYMPHOCYTES % (AUTO) 26.8 % (13-45); MEAN CORPUSCULAR HEMOGLOBIN 32.4 pg (27.0-33.4); MEAN CORPUSCULAR VOLUME 93 fl (80-97); MONOCYTES % (AUTO) 8.1 % (3-13); PLATELET COUNT 300 10^3/uL (150-450); RED BLOOD COUNT 4.81 10^6/uL (4.35-5.55); RED CELL DISTRIBUTION WIDTH 13.2 % (11.5-14.0); SEGMENTED NEUTROPHILS % (AUTO) 59.9 % (42-78); TOTAL CELLS COUNTED % (AUTO) 100 %; WHITE BLOOD COUNT 5.8 10^3/uL (4.0-10.5)
[2018-06-03 15:41] LABS: ALANINE AMINOTRANSFERASE 35 U/L (21-72); ALBUMIN 4.2 g/dL (3.5-5.0); ALKALINE PHOSPHATASE 68 U/L (38-126); ANION GAP 6 (5-19); ASPARTATE AMINO TRANSFERASE 34 U/L (17-59); BILIRUBIN,DIRECT 0.1 mg/dL (0.0-0.4); BILIRUBIN,TOTAL 0.5 mg/dL (0.2-1.3); BLOOD UREA NITROGEN 13 mg/dL (7-20); CALCIUM 9.3 mg/dL (8.4-10.2); CARBON DIOXIDE 29 mmol/L (22-30); CHLORIDE 105 mmol/L (98-107); GLUCOSE 93 mg/dL (75-110); LIPASE 380.3 U/L (23-300); POTASSIUM 4.4 mmol/L (3.6-5.0); SODIUM 140.1 mmol/L (137-145); TOTAL PROTEIN 6.9 g/dL (6.3-8.2)
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
[2018-06-03 18:42] VITALS: BP 117/81
== END 2018-06-03 18:43 | disposition home or self-care (01) ==
LOC: ER 14:33
DX: R35.8 Other polyuria (principal); R10.9 Unspecified abdominal pain; F17.200 Nicotine dependence, unspecified, uncomplicated
CPT/HCPCS: 36415; 80053; 81001; 83690; 85025; 87086; 99284